=== PATIENT | female | born 1970 | race Caucasian/White ===

== ENCOUNTER 2019-01-19 17:15 | Observation (INO) | payer SELFPAY ==
[~2019-01-19] VITALS: Ht 152 cm; Wt 111.0 kg
--- NOTE | 2019-01-19 17:20 | NUR ---
Brought to room to be triaged, PCCT getting subjective c/o and vitals and reporting to RN.
--- NOTE | 2019-01-19 17:33 | NUR ---
RN to room to assess patient.
[2019-01-19] MEDS ORDERED: KETOROLAC 30 MG/ML VIAL IVP STA (18:16)
[2019-01-19] MEDS ORDERED: ONDANSETRON 4 MG/2 ML (SDV) Z0FRAN IVP STA ×2 (18:16→23:14)
[2019-01-19] MEDS ORDERED: NS IV 1000 ML 1,000 ML IV SCH ×3 (18:30→22:15)
--- NOTE | 2019-01-19 18:48 | NUR ---
Accucheck done 133.
[2019-01-19 18:53] LABS: HEMATOCRIT 46 % (35-52); HEMOGLOBIN 15.2 G/DL (11.5-16.0); LYMPHOCYTES % (AUTO) 7 % (12-44); MEAN CORPUSCULAR HEMOGLOBIN 31 PG (25-34); MEAN CORPUSCULAR HGB CONC 33 G/DL (32-36); MEAN CORPUSCULAR VOLUME 94 FL (80-99); MEAN PLATELET VOLUME 9.6 FL (7.4-10.4); NEUTROPHILS % (AUTO) 88 % (42-75); PLATELET COUNT 338 10^3/uL (130-400); RED CELL DISTRIBUTION WIDTH 13.1 % (10.0-14.5); WHITE BLOOD COUNT 13.8 10^3/uL (4.3-11.0)
[2019-01-19 18:54] LABS: BASOPHILS % (AUTO) 0 % (0-10); EOSINOPHILS % (AUTO) 0 % (0-10); LYMPHOCYTES # (AUTO) 0.9 X 10^3 (1.0-4.0); MONOCYTES # (AUTO) 0.6 X 10^3 (0.0-1.0); MONOCYTES % (AUTO) 4 % (0-12); NEUTROPHILS # (AUTO) 12.2 X 10^3 (1.8-7.8)
--- NOTE | 2019-01-19 18:55 | NUR ---
Report to Janet ZENG. Pt needs meds yet. Pt just returned from bathroom having attempted to void and have a diarrhea stool to collect and both became mixed and were discarded.
[2019-01-19] MEDS ORDERED: IOHEXOL 350 MG/ML 150 ML (OMNIPAQUE 350) VIAL IV ONE (19:00)
[2019-01-19] MEDS ORDERED: HOLD METFORMIN - RECEIVED CONTRAST 20 ML VIAL IV SCH (19:00)
[2019-01-19] MEDS ORDERED: NS 100 ML (IVPB) BAG IV ONE (19:00)
[2019-01-19] MEDS ORDERED: CATHETER FLUSH 10 ML SYR IV PRN (19:00)
[2019-01-19 19:19] LABS: ALANINE AMINOTRANSFERASE 52 U/L (0-55); ALBUMIN 4.6 GM/DL (3.2-4.5); ALKALINE PHOSPHATASE 108 U/L (40-136); BILIRUBIN,TOTAL 0.4 MG/DL (0.1-1.0); BUN/CREATININE RATIO 26; CALCIUM 9.8 MG/DL (8.5-10.1); CARBON DIOXIDE 24 MMOL/L (21-32); CHLORIDE 101 MMOL/L (98-107); CREATININE SERUM 0.86 MG/DL (0.60-1.30); GFR ESTIMATED > 60; GLUCOSE 139 MG/DL (70-105); LIPASE 26 U/L (8-78); POTASSIUM 4.1 MMOL/L (3.6-5.0); SODIUM 141 MMOL/L (135-145); TOTAL PROTEIN 7.9 GM/DL (6.4-8.2)
[2019-01-19 19:45] LABS: BAND NEUTROPHILS 3 %; LYMPHOCYTES % (MANUAL) 3 %; MONOCYTES % (MANUAL) 3 %; NEUTROPHILS % (MANUAL) 89 %; REACTIVE LYMPHOCYTES 2 %
[2019-01-19 19:46] LABS: MICROCYTOSIS SLIGHT; SMEAR SCAN COMMENT GIANT PLATELETS 1+; TOXIC GRANULATION/VACUOLAZATIO 1+
--- NOTE | 2019-01-19 19:59 | Diagnostic Imaging Report ---
PROCEDURE: CT abdomen and pelvis with contrast. TECHNIQUE: Multiple contiguous axial images were obtained through the abdomen and pelvis after administration of intravenous contrast. Auto Exposure Controls were utilized during the CT exam to meet ALARA standards for radiation dose reduction. INDICATION: Left lower quadrant abdominal pain. History of diverticulitis. COMPARISON: None. FINDINGS: The heart is unremarkable. The included lung bases are clear. There is hepatic steatosis. No focal hepatic lesions. The gallbladder is surgically absent. A nodule is seen in the right adrenal gland, measuring 1.6 cm. The left adrenal gland is unremarkable. The spleen, pancreas, and kidneys have a normal appearance. There is no pathologically enlarged mesenteric or retroperitoneal adenopathy. Fluid-filled mildly dilated loops of small bowel are seen throughout the abdomen. The appendix is normal. Fluid-filled loops of bowel are also seen in the right colon. Scattered diverticuli are seen in the descending and sigmoid colon without evidence of acute diverticulitis. There is no free fluid or free air. The osseous structures are age-appropriate. Ureters and bladder are grossly normal. There is no free air, loculated collection, or adenopathy in the pelvis. IMPRESSION: 1. Fluid-filled mildly dilated loops of small bowel, which may represent enteritis. However, early small bowel obstruction may have this appearance. Recommend follow-up. 2. Scattered diverticuli without evidence of acute diverticulitis. 3. Hepatic steatosis. No focal hepatic lesions. 4. Nodule in the right adrenal gland measuring 1.6 cm. Recommend attention on followup. Adrenal protocol CT or MRI may also be performed to further evaluate. Dictated by: Dictated on workstation # [id number]
[2019-01-19] MEDS ORDERED: HYOS-19 (20:18)
[2019-01-19] MEDS ORDERED: LISI40TA (20:18)
[2019-01-19] MEDS ORDERED: METO50TA15 PO (20:18)
--- NOTE | 2019-01-19 20:43 | ED Abdominal Pain ---
General Chief Complaint: Abdominal/GI Problems Stated Complaint: VOMITING,ABD PAIN Nursing Triage Note: Patient arrival to ED with c/o N/V/D x 3 days with worsening pain in LLQ over to midline. Pt states one week ago with stomach cramps and lesser N/V/D sx. Pt has been on Flagyl and Cipro since last Sunday. Reports of very foul smell stool. Sepsis Screen: Possible Severe Sepsis Risk Source of Information: Patient, Spouse History of Present Illness Date Seen by Provider: Jan 19, 2019 Time Seen by Provider: 19:33 Initial Comments 48-year-old female presenting with complaints of diffuse abdominal pain with nausea, vomiting, diarrhea 4 days. She states she was in the clinic this last week and seen by JOHN Sinha. She was on Flagyl and Cipro for the abdominal pain and presumed diverticulitis. She does have history diverticulitis and that was part of why she was on the antibiotics. However then she developed diarrhea and so she had stopped the antibiotics 4 days ago. The diarrhea and nausea and vomiting had continued. She presents tonight because she continued to have symptoms. She was having low-grade fevers at home as well. She reports that her diarrhea and vomited both had a very foul smell to them and have been green in color. Her abdominal pain has been worsening as well. She feels that it is worse in the left lower quadrant. She has had a lot of irritation to her rectum and had bleeding with wiping. Allergies and Home Medications Allergies Coded Allergies: prochlorperazine (Verified Allergy, Severe, Anaphylaxis, 01/19/19) Patient Home Medication List Home Medication List Reviewed: Yes Review of Systems Review of Systems Constitutional: chills, fever (low-grade), malaise EENTM: No Blurred Vision, No Nose Congestion Respiratory: Denies Cough Cardiovascular: Denies Chest Pain; Lightheadedness Gastrointestinal: See HPI, Abdomen Distended (bloated sensation), Abdominal Pain (cramping and pain), Diarrhea, Nausea, Rectal Bleeding (from the increased amount of diarrhea she has had bleeding around her rectum), Vomiting Genitourinary: Denies Burning Musculoskeletal: muscle pain (overall body aches) Skin: no symptoms reported Psychiatric/Neurological: Headache, Weakness (generalized) Past Eyqwptj-Esjlsw-Bhwjxf Hx Past Med/Social Hx: Reviewed Nursing Past Med/Soc Hx Patient Social History Alcohol Use: Denies Use Recreational Drug Use: No Smoking Status: Never a Smoker 2nd Hand Smoke Exposure: No Recent Foreign Travel: No Contact w/Someone Who Travel: No Recent Infectious Disease Expo: No Recent Hopitalizations: No Physical Abuse: No Sexual Abuse: No Mistreated: No Fear: No Seasonal Allergies Seasonal Allergies: No Past Medical History Surgeries: Yes (L lateral knee release) Gallbladder, Hysterectomy, Orthopedic Respiratory: No Cardiac: Yes Hypertension Neurological: No [employer]ENT History: Hysterectomy Genitourinary: No Gastrointestinal: Yes (Hx Diverticulitis) Musculoskeletal: No Endocrine: Yes (Newly diagnosed DM Type II) Diabetes, Non-Insulin dep Cancer: No Psychosocial: No Integumentary: No Blood Disorders: No Physical Exam Vital Signs Vital Signs - First Documented 01/19/19 17:20 Temp 37.3 Pulse 121 Resp 22 B/P (MAP) 152/78 (102) Pulse Ox 97 O2 Delivery Room Air Capillary Refill : Less Than 3 Seconds Height/Weight/BMI Height: '" Weight: lbs. oz. kg; 46.00 BMI Method: General Appearance: WD/WN, mild distress HEENT: PERRL/EOMI; No photophobia, No pharyngeal erythema; other (dry mucous membranes) Neck: non-tender, full range of motion, supple, normal inspection Respiratory: chest non-tender, lungs clear, normal breath sounds Cardiovascular: normal peripheral pulses, no edema, tachycardia Gastrointestinal: soft, no pulsatile mass, abnormal bowel sounds (hyperactive); No guarding, No rebound; tenderness (diffusely tender); No mass Rectal: deferred Extremities: normal range of motion, non-tender, normal inspection, normal capillary refill Back: no CVA tenderness Neurologic/Psychiatric: alert, normal mood/affect, oriented x 3 Skin: normal color, warm/dry Focused Exam Lactate Level 01/19/19 18:30: Lactic Acid Level 2.29*H 01/19/19 20:30: Lactic Acid Level 1.41 Lactic Acid Level Laboratory Tests Test 01/19/19 18:30 01/19/19 20:30 Lactic Acid Level 2.29 MMOL/L (0.50-2.00) *H 1.41 MMOL/L (0.50-2.00) Progress/Results/Core Measures Results/Orders Lab Results Laboratory Tests Test 01/19/19 18:30 01/19/19 18:43 01/19/19 20:27 01/19/19 20:30 Range/Units White Blood Count 13.8 H 4.3-11.0 10^3/uL Red Blood Count 4.91 4.35-5.85 10^6/uL Hemoglobin 15.2 11.5-16.0 G/DL Hematocrit 46 35-52 % Mean Corpuscular Volume 94 80-99 FL Mean Corpuscular Hemoglobin 31 25-34 PG Mean Corpuscular Hemoglobin Concent 33 32-36 G/DL Red Cell Distribution Width 13.1 10.0-14.5 % Platelet Count 338 130-400 10^3/uL Mean Platelet Volume 9.6 7.4-10.4 FL Neutrophils (%) (Auto) 88 H 42-75 % Lymphocytes (%) (Auto) 7 L 12-44 % Monocytes (%) (Auto) 4 0-12 % Eosinophils (%) (Auto) 0 0-10 % Basophils (%) (Auto) 0 0-10 % Neutrophils # (Auto) 12.2 H 1.8-7.8 X 10^3 Lymphocytes # (Auto) 0.9 L 1.0-4.0 X 10^3 Monocytes # (Auto) 0.6 0.0-1.0 X 10^3 Eosinophils # (Auto) 0.0 0.0-0.3 10^3/uL Basophils # (Auto) 0.0 0.0-0.1 10^3/uL Neutrophils % (Manual) 89 % Lymphocytes % (Manual) 3 % Monocytes % (Manual) 3 % Band Neutrophils 3 % Reactive Lymphocytes 2 % Toxic Granulation 1+ Microcytosis SLIGHT Sodium Level 141 135-145 MMOL/L Potassium Level 4.1 3.6-5.0 MMOL/L Chloride Level 101 98-107 MMOL/L Carbon Dioxide Level 24 21-32 MMOL/L Anion Gap 16 H 5-14 MMOL/L Blood Urea Nitrogen 22 H 7-18 MG/DL Creatinine 0.86 0.60-1.30 MG/DL Estimat Glomerular Filtration Rate > 60 BUN/Creatinine Ratio 26 Glucose Level 139 H 70-105 MG/DL Lactic Acid Level 2.29 *H 1.41 0.50-2.00 MMOL/L Calcium Level 9.8 8.5-10.1 MG/DL Corrected Calcium 8.5-10.1 MG/DL Total Bilirubin 0.4 0.1-1.0 MG/DL Aspartate Amino Transf (AST/SGOT) 33 5-34 U/L Alanine Aminotransferase (ALT/SGPT) 52 0-55 U/L Alkaline Phosphatase 108 40-136 U/L Total Protein 7.9 6.4-8.2 GM/DL Albumin 4.6 H 3.2-4.5 GM/DL Lipase 26 8-78 U/L Serum Test, Qualitative NEGATIVE NEGATIVE Smear Scan GIANT PLATELETS 1+ Glucometer 133 H 70-110 MG/DL Urine Color YELLOW Urine Clarity CLEAR Urine pH 6.5 5-9 Urine Specific [place] <=1.005 1.016-1.022 Urine Protein TRACE NEGATIVE Urine Glucose (UA) NEGATIVE NEGATIVE Urine Ketones NEGATIVE NEGATIVE Urine Nitrite NEGATIVE NEGATIVE Urine Bilirubin NEGATIVE NEGATIVE Urine Urobilinogen 0.2 < = 1.0 MG/DL Urine Leukocyte Esterase NEGATIVE NEGATIVE Urine RBC (Auto) TRACE-L NEGATIVE Urine RBC 2-5 H /HPF Urine WBC NONE /HPF Urine Squamous Epithelial Cells 0-2 /HPF Urine Crystals NONE /LPF Urine Bacteria TRACE /HPF Urine Casts NONE /LPF Urine Mucus SMALL H /LPF Urine Culture Indicated NO My Orders Orders - ZIA LYONS MD Comprehensive Metabolic Panel (01/19/19 18:16) Lipase (01/19/19 18:16) Ua Culture If Indicated (01/19/19 18:16) Hcg,Qualitative Serum (01/19/19 18:16) Ed Iv/Invasive Line Start (01/19/19 18:16) Cbc With Automated Diff (01/19/19 18:16) Ct Abdomen/Pelvis W (01/19/19 18:16) Ns Iv 1000 Ml (Sodium Chloride 0.9%) (01/19/19 18:30) Ketorolac Injection (Toradol Injection) (01/19/19 18:16) Ondansetron Injection (Zofran Injectio (01/19/19 18:16) Blood Culture (01/19/19 18:16) Lactic Acid Analyzer (01/19/19 18:16) Accucheck Stat ONCE (01/19/19 18:46) Iohexol Injection (Omnipaque 350 Mg/Ml 1 (01/19/19 19:00) Received Contrast (Hold Metformin- Contr (01/19/19 19:00) Sodium Chloride Flush (Catheter Flush Sy (01/19/19 19:00) Ns (Ivpb) (Sodium Chloride 0.9% Ivpb Bag (01/19/19 19:00) Manual Differential (01/19/19 18:30) C Difficile Ag + Toxin A/B. (01/19/19 18:56) Isolation Central Supply Req (01/19/19 18:56) Ns Iv 1000 Ml (Sodium Chloride 0.9%) (01/19/19 20:45) Straight Cath For Spec.-Adult (01/19/19 20:43) Medications Given in ED Current Medications Medications Dose Ordered Sig/Makayla Route Start Time Stop Time Status Last Admin Dose Admin Iohexol 115 ml ONCE ONCE IV 01/19/19 19:00 01/19/19 19:01 DC 01/19/19 19:33 115 ML Sodium Chloride 10 ml NEEDED PRN IV 01/19/19 19:00 01/19/19 19:33 10 ML Sodium Chloride 100 ml ONCE ONCE IV 01/19/19 19:00 01/19/19 19:01 DC 01/19/19 19:33 100 ML Vital Signs/I&O 01/19/19 17:20 Temp 37.3 Pulse 121 Resp 22 B/P (MAP) 152/78 (102) Pulse Ox 97 O2 Delivery Room Air Blood Pressure Mean: 102 POS FSBG Bedside Testing Finger Stick Blood Glucose: 133 Blood Glucose Action Taken: reported to Dr Junior Progress Note #1: Progress Note Check basic labs as well as blood cultures and lactic acid since she is tachycardic and complaining of fevers. Give IV fluids for hydration since she was tachycardic. Zofran for nausea and Toradol for pain. Obtain a CT scan of her abdomen and pelvis to evaluate her diffuse abdominal pain especially with her having a history of diverticulitis. Ordered a stool for C. difficile toxin Progress Note #2: Progress Note Patient reports that her abdominal cramping and pain was improved after treatment. However it is still severe with palpation and movement. Her nausea is improved after the Zofran. She was feeling a little bit better after the IV fluids. Her labs did show an elevated white blood cell count with a left shift. She did have mild elevation of her lactic acid which could go along with dehydration. She had a blood sugar of 133. Her other electrolytes and liver enzymes were normal. She had a CT scan that showed signs of enteritis and diverticulosis but no definite diverticulitis. The radiologist felt that her appendix looked normal on the CT. A catheter urine was obtained and did not go straight any signs of infection. She had continued diarrhea here in the ED and stool was sent to [place] for testing. Based on her continuing to have severe pain and cramping as well as the elevated white count, lactic acid, diarrhea Will discuss with Dr. Coronado for the [facility] service about admission for hydration and antibiotics for presumed infectious source of the diarrhea. Stool studies will be sent Repeat lactic acid had decreased from 2.29 down to 1.4 as she was given IV fluids for hydration. A dose of Rocephin 1 g IV had also been administered and blood cultures are pending. Diagnostic Imaging Diagonstic Imaging: CT Plain Films/CT/US/NM/MRI: abdomen, pelvis Comments NAME: ADAMARIS [facility] REC#: [id number] PT STATUS: REG ER : 1970 PHYSICIAN: ZIA LYONS MD ADMIT DATE: 01/19/19/ER FS Signed POSDate of Exam:01/19/19 CT ABDOMEN/PELVIS W PROCEDURE: CT abdomen and pelvis with contrast. TECHNIQUE: Multiple contiguous axial images were obtained through the abdomen and pelvis after administration of intravenous contrast. Auto Exposure Controls were utilized during the CT exam to meet ALARA standards for radiation dose reduction. INDICATION: Left lower quadrant abdominal pain. History of diverticulitis. COMPARISON: None. FINDINGS: The heart is unremarkable. The included lung bases are clear. There is hepatic steatosis. No focal hepatic lesions. The gallbladder is surgically absent. A nodule is seen in the right adrenal gland, measuring 1.6 cm. The left adrenal gland is unremarkable. The spleen, pancreas, and kidneys have a normal appearance. There is no pathologically enlarged mesenteric or retroperitoneal adenopathy. Fluid-filled mildly dilated loops of small bowel are seen throughout the abdomen. The appendix is normal. Fluid-filled loops of bowel are also seen in the right colon. Scattered diverticuli are seen in the descending and sigmoid colon without evidence of acute diverticulitis. There is no free fluid or free air. The osseous structures are age-appropriate. Ureters and bladder are grossly normal. There is no free air, loculated collection, or adenopathy in the pelvis. IMPRESSION: 1. Fluid-filled mildly dilated loops of small bowel, which may represent enteritis. However, early small bowel obstruction may have this appearance. Recommend follow-up. 2. Scattered diverticuli without evidence of acute diverticulitis. 3. Hepatic steatosis. No focal hepatic lesions. 4. Nodule in the right adrenal gland measuring 1.6 cm. Recommend attention on followup. Adrenal protocol CT or MRI may also be performed to further evaluate. Dictated by: Dictated on workstation # [id number] Dict: 01/19/191949 Trans: 01/19/191958 [facility] [id number] Interpreted by: EVERETTE BENAVIDEZ DO Electronically signed by: EVERETTE BENAVIDEZ DO 01/19/191958 Departure Communication (Admissions) Time/Spoke to Admitting Phy: 20:[address] Coronado for the [facility] service since patient follows with JOHN Sinha. Will admit the patient for hydration and obtain stool cultures and check for her C. difficile. Will presumptively treat with Flagyl orally as well as give a dose of Rocephin IV here. Continue with fluids and serial abdominal exam for her pain. The initial CT scan did not show diverticulitis or appendicitis but patient was still having pain so we will admit for monitoring and see how she responds. Impression Primary Impression: Diffuse abdominal pain Additional Impressions: Diarrhea Qualified Codes: R19.7 - Diarrhea, unspecified Enteritis Dehydration Disposition: ADMITTED INPATIENT Condition: Stable Admissions Decision to Admit Reason: Admit from ER (General) Decision to Admit/Date: Jan 19, 2019 Time/Decision to Admit Time: 20:56 Departure-Patient Inst. Referrals: [facility] (PCP) Primary Care Physician MANAN SINHA (Family) Primary Care Physician ZIA LYONS MD Jan 19, 2019 20:43 POS
[2019-01-19 20:46] LABS: CLARITY,URINE CLEAR; COLOR,URINE YELLOW; PH,URINE 6.5 (5-9); PROTEIN,URINE TRACE (NEGATIVE)
[2019-01-19 20:47] LABS: BACTERIA,URINE TRACE /HPF; BILIRUBIN,URINE NEGATIVE (NEGATIVE); GLUCOSE, URINE (UA) NEGATIVE (NEGATIVE); KETONES,URINE NEGATIVE (NEGATIVE); LEUKOCYTE ESTERASE ,URINE NEGATIVE (NEGATIVE); NITRITE,URINE NEGATIVE (NEGATIVE); SQUAMOUS EPITHELIAL CELL,UR 0-2 /HPF
[2019-01-19] MEDS ORDERED: cefTRIAXone FOR IV USE 1,000 MG in WATER (STERILE) FOR INJECTION 10 ML IV STA (21:23)
[2019-01-19] MEDS ORDERED: NS IV 1000 ML 1,000 ML IV STA (21:23)
[2019-01-20 00:35] VITALS: BP 160/83
[2019-01-20] MEDS ORDERED: morphine INJ 4 MG/ML 1 ML (VIAL/SYRINGE) IV PRN (01:00)
[2019-01-20] MEDS: NS IV 1000 ML 1,000 ML IV SCH ×4 (01:00→21:47)
[2019-01-20] MEDS ORDERED: ONDANSETRON 4 MG/2 ML (SDV) Z0FRAN IV PRN (01:00)
[2019-01-20] MEDS ORDERED: KETOROLAC 30 MG/ML VIAL IV PRN (01:00)
[2019-01-20 04:49] VITALS: BP 126/74
[2019-01-20] MEDS ORDERED: metroNIDAZOLE 500 MG (FLAGYL) TAB PO SCH (06:00)
[2019-01-20 06:22] LABS: BASOPHILS % (AUTO) 0 % (0-10); EOSINOPHILS % (AUTO) 0 % (0-10); HEMATOCRIT 37 % (35-52); LYMPHOCYTES # (AUTO) 1.7 X 10^3 (1.0-4.0); LYMPHOCYTES % (AUTO) 26 % (12-44); MEAN CORPUSCULAR HEMOGLOBIN 31 PG (25-34); MEAN CORPUSCULAR HGB CONC 33 G/DL (32-36); MEAN CORPUSCULAR VOLUME 96 FL (80-99); MEAN PLATELET VOLUME 9.7 FL (7.4-10.4); MONOCYTES # (AUTO) 0.6 X 10^3 (0.0-1.0); MONOCYTES % (AUTO) 9 % (0-12); NEUTROPHILS # (AUTO) 4.3 X 10^3 (1.8-7.8); NEUTROPHILS % (AUTO) 66 % (42-75); PLATELET COUNT 226 10^3/uL (130-400); WHITE BLOOD COUNT 6.6 10^3/uL (4.3-11.0)
[2019-01-20 06:43] LABS: ALANINE AMINOTRANSFERASE 42 U/L (0-55); ALBUMIN 3.6 GM/DL (3.2-4.5); ALKALINE PHOSPHATASE 74 U/L (40-136); BILIRUBIN,TOTAL 0.4 MG/DL (0.1-1.0); BUN/CREATININE RATIO 25; CALCIUM 7.9 MG/DL (8.5-10.1); CARBON DIOXIDE 22 MMOL/L (21-32); CHLORIDE 109 MMOL/L (98-107); CREATININE SERUM 0.77 MG/DL (0.60-1.30); GFR ESTIMATED > 60; GLUCOSE 98 MG/DL (70-105); POTASSIUM 3.3 MMOL/L (3.6-5.0); SODIUM 140 MMOL/L (135-145); TOTAL PROTEIN 5.9 GM/DL (6.4-8.2)
[2019-01-20 08:50] VITALS: BP 134/67
[2019-01-20] MEDS: CHOLESTYRAMINE 4 GM (QUESTRAN LITE, PREVALITE) PKT PO SCH ×2 (09:03→21:40)
[2019-01-20] MEDS ORDERED: VANCOMYCIN ORAL SUSPENSION 60 ML BOTTLE PO SCH (09:15)
[2019-01-20] MEDS: VANCOMYCIN ORAL 250 MG/5 ML 120 ML PO SCH ×6 (11:16→22:41)
[2019-01-20 11:41] VITALS: BP 138/81
--- NOTE | 2019-01-20 13:16 | NUR ---
"RD ASSESSMENT PMHx: T2DM; diverticulosis; HTN PT INTERACTION: Pt was awake and pleasant during nutrition assessment. Pt states current appetite is poor and has been this way for the last week. Pt states trying to follow a diabetic diet at home as she was recently diagnosed with type 2 diabetes mellitus. Pt states some difficulty chewing/swallowing food at this time. Pt states episodes of nausea/vomiting over the last week. Note pt currently on zofran, per chart review. Pt states having episodes of diarrhea during that timeframe as well. Note last BM was 01/20 and pt not currently on bowel regimen at this time, per chart review. Pt states no recent wt changes. Note unable to determine recent wt hx, per chart review. ABNORMAL NUTRITION-RELATED LAB VALUES: K 3.3 (L); Ca 7.9 (L); Pro 5.9 (L); Cl 109 (H0; BUN 19 (H) Est. kcal needs: 2266-6136 kcal (15-18 kcal/kg) Est. Pro needs: 89-111 g Pro (0.8-1.0 g Pro/kg) PES STATEMENT: Inadequate oral intake (NI-2.1) related to loss of appetite | nausea | vomiting as evidenced by pt interview INTERVENTION: Continue with current diet order of Clear Liquid diet. Advance diet as medically able. Encouraged pt to eat when able. MONITOR/EVALUATE: PO Intake; Plan of Care; Hydration Status; Weight Status; Lab Values Jonah Allan, MS, RD, LD"
[2019-01-20] MEDS ORDERED: METR500T PO (13:24)
[2019-01-20] MEDS ORDERED: VENL75CA93 PO (13:24)
[2019-01-20] MEDS ORDERED: OMEP40CA36 PO (13:24)
[2019-01-20] MEDS ORDERED: CIPR-225 PO (13:24)
[2019-01-20] MEDS ORDERED: IBUP-2055 PO (13:24)
--- NOTE | 2019-01-20 13:24 | NUR ---
SPOKE WITH PT WELL CALLING [facility] IN [facility] TO COMPLETE THE MED REC. PT WAS ABLE TO TELL ME ALL HER MEDS AND HOW/ WHEN SHE TOOK EACH ONE. THE FOLLOWING ARE FILL DATES FROM [facility]: 12-04-2018 METOPROLOL #60/30DS 12-23-2018 OMEPRAZOLE #30/30DS 12-23-2018 VENLAFAXINE #30/30DS SHE WAS ALSO PRESCRIBED 2 ANTIBIOTICS BUT SAYS SHE QUIT TAKING THEM THE DAY BEFORE SHE WAS ADMITTED, THEY WERE LEFT ON THE MED REC. OTC MEDS: IBUPROFEN
[2019-01-20 15:22] VITALS: BP 165/78
--- NOTE | 2019-01-20 16:23 | History & Physical ---
HPI History of Present Illness: 48 yo female having diarrhea and abdominal pain for about a week. Saw her primary and was started on cipro and flagyl for presumed diverticulitis which she has history of. She got worse however so she stopped abx after 3 days and continued to get worse. Has also had vomiting. Source: patient Date seen by provider: Jan 20, 2019 Time Seen by Provider: 12:40 Attending Physician Louis Mckinley MD [facility], [facility] [place],[facility] Consult Date of Admission Jan 19, 2019 at 20:56 Home Medications Home Medications Reviewed patient Home Medication Reconciliation performed by pharmacy medication reconciliations sonogram technician and/or nursing. Patients Allergies have been reviewed. Allergies Coded Allergies: prochlorperazine (Verified Allergy, Severe, Anaphylaxis, 01/19/19) AHA-Ebpjxf-Blrbwj Hx Patient Social History Alcohol Use: Denies Use Recreational Drug Use: No Smoking Status: Never a Smoker 2nd Hand Smoke Exposure: No Recent Foreign Travel: No Contact w/other who traveled: No Recent Hopitalizations: No Recent Infectious Disease Expo: No Past Medical History PMHx: DMII RA Fibromyalgia SurgHx: Hysterectomy Cholecystectomy Left knee surgery Review of Systems ([facility]) Constitutional: fever EENTM: throat pain Respiratory: no symptoms reported Cardiovascular: chest pain (with vomiting) Gastrointestinal: abdominal pain, diarrhea, nausea, vomiting Genitourinary: no symptoms reported Musculoskeletal: no symptoms reported Skin: no symptoms reported Psychiatric/Neurological: No Symptoms Reported Reviewed Test Results Reviewed Test Results Lab Laboratory Tests Test 01/19/19 18:30 01/19/19 18:43 01/19/19 20:27 01/19/19 20:30 Range/Units White Blood Count 13.8 H 4.3-11.0 10^3/uL Red Blood Count 4.91 4.35-5.85 10^6/uL Hemoglobin 15.2 11.5-16.0 G/DL Hematocrit 46 35-52 % Mean Corpuscular Volume 94 80-99 FL Mean Corpuscular Hemoglobin 31 25-34 PG Mean Corpuscular Hemoglobin Concent 33 32-36 G/DL Red Cell Distribution Width 13.1 10.0-14.5 % Platelet Count 338 130-400 10^3/uL Mean Platelet Volume 9.6 7.4-10.4 FL Neutrophils (%) (Auto) 88 H 42-75 % Lymphocytes (%) (Auto) 7 L 12-44 % Monocytes (%) (Auto) 4 0-12 % Eosinophils (%) (Auto) 0 0-10 % Basophils (%) (Auto) 0 0-10 % Neutrophils # (Auto) 12.2 H 1.8-7.8 X 10^3 Lymphocytes # (Auto) 0.9 L 1.0-4.0 X 10^3 Monocytes # (Auto) 0.6 0.0-1.0 X 10^3 Eosinophils # (Auto) 0.0 0.0-0.3 10^3/uL Basophils # (Auto) 0.0 0.0-0.1 10^3/uL Neutrophils % (Manual) 89 % Lymphocytes % (Manual) 3 % Monocytes % (Manual) 3 % Band Neutrophils 3 % Reactive Lymphocytes 2 % Toxic Granulation 1+ Microcytosis SLIGHT Sodium Level 141 135-145 MMOL/L Potassium Level 4.1 3.6-5.0 MMOL/L Chloride Level 101 98-107 MMOL/L Carbon Dioxide Level 24 21-32 MMOL/L Anion Gap 16 H 5-14 MMOL/L Blood Urea Nitrogen 22 H 7-18 MG/DL Creatinine 0.86 0.60-1.30 MG/DL Estimat Glomerular Filtration Rate > 60 BUN/Creatinine Ratio 26 Glucose Level 139 H 70-105 MG/DL Lactic Acid Level 2.29 *H 1.41 0.50-2.00 MMOL/L Calcium Level 9.8 8.5-10.1 MG/DL Corrected Calcium 8.5-10.1 MG/DL Total Bilirubin 0.4 0.1-1.0 MG/DL Aspartate Amino Transf (AST/SGOT) 33 5-34 U/L Alanine Aminotransferase (ALT/SGPT) 52 0-55 U/L Alkaline Phosphatase 108 40-136 U/L Total Protein 7.9 6.4-8.2 GM/DL Albumin 4.6 H 3.2-4.5 GM/DL Lipase 26 8-78 U/L Serum Test, Qualitative NEGATIVE NEGATIVE Smear Scan GIANT PLATELETS 1+ Glucometer 133 H 70-110 MG/DL Urine Color YELLOW Urine Clarity CLEAR Urine pH 6.5 5-9 Urine Specific [place] <=1.005 1.016-1.022 Urine Protein TRACE NEGATIVE Urine Glucose (UA) NEGATIVE NEGATIVE Urine Ketones NEGATIVE NEGATIVE Urine Nitrite NEGATIVE NEGATIVE Urine Bilirubin NEGATIVE NEGATIVE Urine Urobilinogen 0.2 < = 1.0 MG/DL Urine Leukocyte Esterase NEGATIVE NEGATIVE Urine RBC (Auto) TRACE-L NEGATIVE Urine RBC 2-5 H /HPF Urine WBC NONE /HPF Urine Squamous Epithelial Cells 0-2 /HPF Urine Crystals NONE /LPF Urine Bacteria TRACE /HPF Urine Casts NONE /LPF Urine Mucus SMALL H /LPF Urine Culture Indicated NO Test 01/20/19 05:48 Range/Units White Blood Count 6.6 4.3-11.0 10^3/uL Red Blood Count 3.81 L 4.35-5.85 10^6/uL Hemoglobin 12.0 # 11.5-16.0 G/DL Hematocrit 37 35-52 % Mean Corpuscular Volume 96 80-99 FL Mean Corpuscular Hemoglobin 31 25-34 PG Mean Corpuscular Hemoglobin Concent 33 32-36 G/DL Red Cell Distribution Width 14.0 10.0-14.5 % Platelet Count 226 130-400 10^3/uL Mean Platelet Volume 9.7 7.4-10.4 FL Neutrophils (%) (Auto) 66 42-75 % Lymphocytes (%) (Auto) 26 12-44 % Monocytes (%) (Auto) 9 0-12 % Eosinophils (%) (Auto) 0 0-10 % Basophils (%) (Auto) 0 0-10 % Neutrophils # (Auto) 4.3 1.8-7.8 X 10^3 Lymphocytes # (Auto) 1.7 1.0-4.0 X 10^3 Monocytes # (Auto) 0.6 0.0-1.0 X 10^3 Eosinophils # (Auto) 0.0 0.0-0.3 10^3/uL Basophils # (Auto) 0.0 0.0-0.1 10^3/uL Sodium Level 140 135-145 MMOL/L Potassium Level 3.3 L 3.6-5.0 MMOL/L Chloride Level 109 H 98-107 MMOL/L Carbon Dioxide Level 22 21-32 MMOL/L Anion Gap 9 5-14 MMOL/L Blood Urea Nitrogen 19 H 7-18 MG/DL Creatinine 0.77 0.60-1.30 MG/DL Estimat Glomerular Filtration Rate > 60 BUN/Creatinine Ratio 25 Glucose Level 98 70-105 MG/DL Calcium Level 7.9 L 8.5-10.1 MG/DL Corrected Calcium 8.2 L 8.5-10.1 MG/DL Total Bilirubin 0.4 0.1-1.0 MG/DL Aspartate Amino Transf (AST/SGOT) 25 5-34 U/L Alanine Aminotransferase (ALT/SGPT) 42 0-55 U/L Alkaline Phosphatase 74 40-136 U/L Total Protein 5.9 L 6.4-8.2 GM/DL Albumin 3.6 3.2-4.5 GM/DL Radiology CT abd/pelvis 01/19- hepatic steatosis, right adrenal 1.6 cm nodule, enteritis Physical Exam-([facility]) Physical Exam Vital Signs VS - Last 72 Hours, by Label POS 01/19/19 01/19/19 01/20/19 01/20/19 17:20 23:52 00:35 04:49 Temp 37.3 37.2 37.6 Pulse 121 101 101 108 Resp 22 18 20 20 B/P (MAP) 152/78 (102) 168/87 160/83 (108) 126/74 (91) Pulse Ox 97 98 98 97 O2 Delivery Room Air Room Air Room Air Room Air 01/20/19 01/20/19 01/20/19 01/20/19 08:00 08:50 11:41 13:03 Temp 37.0 36.6 Pulse 100 95 94 Resp 20 20 B/P (MAP) 134/67 (89) 138/81 (100) Pulse Ox 94 97 O2 Delivery Room Air Room Air Room Air 01/20/19 15:22 Temp 36.7 Pulse 91 Resp 18 B/P (MAP) 165/78 (107) Pulse Ox 98 O2 Delivery Room Air Capillary Refill : Less Than 3 Seconds General Appearance: WD/WN, no apparent distress Respiratory: lungs clear, normal breath sounds Cardiovascular: regular rate, rhythm, no murmur Gastrointestinal: normal bowel sounds, soft; No distended; tenderness (diffuse mild) Extremities: no pedal edema Neurologic/Psychiatric: alert, normal mood/affect Skin: normal color, warm/dry Assessment/Plan Assessment/Plan Admission Status: Observation (1) C. difficile colitis Status: Acute Assessment & Plan: Started oral vancomycin. IV rehydration. Initial leukocytosis and lactic acidosis resolved. (2) Adrenal nodule Status: Acute Assessment & Plan: Recommend hormone testing when illness resolved. (3) Diabetes Status: Chronic Assessment & Plan: Sliding scale insulin Qualifiers: (4) Hypokalemia Status: Acute Assessment & Plan: Replace and recheck (5) Hypocalcemia Status: Acute (6) Hematuria Status: Acute Assessment & Plan: Microscopic, CT okay for kidneys, is a non-smoker. Consider further work-up outpatient. (7) DVT prophylaxis Status: Acute Assessment & Plan: Enoxaparin Clinical Quality Measures DVT/VTE Risk/Contraindication: Risk Factor Score Per Nursin RFS Level Per Nursing on Admit: 4+=Very High LOUIS MCKINLEY MD Jan 20, 2019 16:23 POS
[2019-01-20] MEDS: ENOXAPARIN 40 MG/0.4 ML (LOVENOX) SYR SQ SCH (16:59)
[2019-01-20 19:18] VITALS: BP 149/85
[2019-01-20] MEDS: inSUlin ASPART (NovoLOG) 1 UNIT/0.01 ML (CHARGE PER UNIT) SC SCH (21:06)
[2019-01-20] MEDS: meTOprolol TARTRATE 50 MG (LOPRESSOR) TAB PO SCH (21:40)
[2019-01-21] VITALS (8 sets, daily range): BP systolic 148–179; BP diastolic 76–101
[2019-01-21] MEDS: inSUlin ASPART (NovoLOG) 1 UNIT/0.01 ML (CHARGE PER UNIT) SC SCH ×4 (04:58→20:28)
[2019-01-21] MEDS: VANCOMYCIN ORAL 250 MG/5 ML 120 ML PO SCH ×6 (05:52→17:50)
[2019-01-21] MEDS: NS IV 1000 ML 1,000 ML IV SCH (05:52)
[2019-01-21] MEDS: ENOXAPARIN 40 MG/0.4 ML (LOVENOX) SYR SQ SCH ×2 (05:52→17:17)
[2019-01-21] MEDS: VENlafaxine XR 75 MG (EFFEXOR XR) CAP PO SCH (05:53)
[2019-01-21 06:30] LABS: MEAN PLATELET VOLUME 9.9 FL (7.4-10.4); RED CELL DISTRIBUTION WIDTH 13.8 % (10.0-14.5); WHITE BLOOD COUNT 5.5 10^3/uL (4.3-11.0)
[2019-01-21 06:48] LABS: BUN/CREATININE RATIO 11; CALCIUM 8.1 MG/DL (8.5-10.1); CARBON DIOXIDE 22 MMOL/L (21-32); CHLORIDE 108 MMOL/L (98-107); GFR ESTIMATED > 60; GLUCOSE 107 MG/DL (70-105); POTASSIUM 3.2 MMOL/L (3.6-5.0); SODIUM 140 MMOL/L (135-145)
[2019-01-21] MEDS ORDERED: NS W/KCL 20 MEQ/L 1,000 ML IV SCH (08:30)
[2019-01-21] MEDS: PANTOPRAZOLE 40 MG (PROTONIX) TAB PO SCH (08:51)
[2019-01-21] MEDS: meTOprolol TARTRATE 50 MG (LOPRESSOR) TAB PO SCH ×2 (08:51→20:28)
[2019-01-21] MEDS: CHOLESTYRAMINE 4 GM (QUESTRAN LITE, PREVALITE) PKT PO SCH ×2 (08:51→22:21)
[2019-01-21] MEDS: POTASSIUM CL 10MEQ/50ML IVPB 50 ML IV SCH ×3 (08:52→15:46)
--- NOTE | 2019-01-21 11:53 | NUR ---
DISCHARGE PLANNING: This RN spoke with patient regarding possible discharge soon. She reports concern for her 8 and 9 y/o grand children. She is afraid that she is contagious with her CDIFF infection and does not want her grandchildren to get it. Relayed concern to her doctor.
--- NOTE | 2019-01-21 14:59 | Progress Note ---
Subjective Subjective/Events-last exam Seen at 1245. Afebrile, has had 7 BM last 24 hours, continues to have some abdominal pain. Focused Exam Lactate Level 01/19/19 18:30: Lactic Acid Level 2.29*H 01/19/19 20:30: Lactic Acid Level 1.41 Objective Exam Last Set of Vital Signs Vital Signs Date Time Temp Pulse Resp B/P (MAP) Pulse Ox O2 Delivery O2 Flow Rate FiO2 01/21/19 12:47 78 01/21/19 08:30 36.4 20 170/98 (122) 97 Room Air Capillary Refill : Less Than 3 Seconds I&O Intake and Output 01/21/19 00:00 Intake Total 3610 ml Output Total 1000 ml Balance 2610 ml Intake Oral 2610 ml IV Total 1000 ml Output Urine Total 1000 ml # Voids 4 # Bowel Movements 7 Daily Weight Change No No General: Alert, No Acute Distress Lungs: Clear to Auscultation, Normal Air Movement Heart: Regular Rate, No Murmurs Abdomen: Normal Bowel Sounds, Soft, Other (diffuse ttp) Psych/Mental Status: Mental Status NL Results/Procedures Lab Laboratory Tests 01/20/19 20:47: Glucometer 77 01/21/19 04:46: Glucometer 69L 01/21/19 05:26: White Blood Count 5.5, Red Blood Count 3.54L, Hemoglobin 11.0L, Hematocrit 34L, Mean Corpuscular Volume 97, Mean Corpuscular Hemoglobin 31, Mean Corpuscular Hemoglobin Concent 32, Red Cell Distribution Width 13.8, Platelet Count 222, Mean Platelet Volume 9.9, Sodium Level 140, Potassium Level 3.2L, Chloride Level 108H, Carbon Dioxide Level 22, Anion Gap 10, Blood Urea Nitrogen 8, Creatinine 0.70, Estimat Glomerular Filtration Rate > 60, BUN/Creatinine Ratio 11, Glucose Level 107H, Calcium Level 8.1L 01/21/19 10:08: Glucometer 96 Microbiology 01/19/19 Blood Culture - Preliminary, Resulted No growth 01/20/19 C. difficile DNA Amplification - Final, Resulted 01/20/19 C. difficile GDH Antigen & Toxins - Final, Resulted 01/20/19 Stool Culture - Preliminary, Resulted Culture In Progress Radiology CT abd/pelvis 01/19- hepatic steatosis, right adrenal 1.6 cm nodule, enteritis Assessment/Plan Assessment/Plan (1) C. difficile colitis Status: Acute Assessment & Plan: Started oral vancomycin. IV rehydration. Initial leukocytosis and lactic acidosis resolved. 01/21 continue supportive care, still with large volume diarrhea and electrolyte disturbances on IVF. (2) Adrenal nodule Status: Acute Assessment & Plan: Recommend hormone testing when illness resolved. (3) Diabetes Status: Chronic Assessment & Plan: Sliding scale insulin Qualifiers: (4) Hypokalemia Status: Acute Assessment & Plan: Replace and recheck (5) Hypocalcemia Status: Acute (6) Hematuria Status: Acute Assessment & Plan: Microscopic, CT okay for kidneys, is a non-smoker. Consider further work-up outpatient. (7) DVT prophylaxis Status: Acute Assessment & Plan: Enoxaparin Clinical Quality Measures DVT/VTE Risk/Contraindication: Risk Factor Score Per Nursin RFS Level Per Nursing on Admit: 4+=Very High LOUIS CRANDALL MD Jan 21, 2019 14:59 POS
[2019-01-21] MEDS: D5 NS W/KCL 20 MEQ/L 1,000 ML IV SCH (17:14)
[2019-01-22] MEDS: VANCOMYCIN ORAL 250 MG/5 ML 120 ML PO SCH ×4 (00:33→06:27)
[2019-01-22 03:01] VITALS: BP 178/94
[2019-01-22] MEDS: D5 NS W/KCL 20 MEQ/L 1,000 ML IV SCH (03:27)
[2019-01-22] MEDS: ENOXAPARIN 40 MG/0.4 ML (LOVENOX) SYR SQ SCH (05:11)
[2019-01-22 06:24] LABS: BUN/CREATININE RATIO 6; CALCIUM 8.9 MG/DL (8.5-10.1); CARBON DIOXIDE 24 MMOL/L (21-32); CHLORIDE 105 MMOL/L (98-107); CREATININE SERUM 0.71 MG/DL (0.60-1.30); GFR ESTIMATED > 60; GLUCOSE 108 MG/DL (70-105); MAGNESIUM 2.1 MG/DL (1.6-2.4); POTASSIUM 3.8 MMOL/L (3.6-5.0); SODIUM 141 MMOL/L (135-145)
[2019-01-22] MEDS: inSUlin ASPART (NovoLOG) 1 UNIT/0.01 ML (CHARGE PER UNIT) SC SCH (06:25)
[2019-01-22] MEDS: VENlafaxine XR 75 MG (EFFEXOR XR) CAP PO SCH (06:27)
[2019-01-22 08:00] VITALS: BP 156/77
[2019-01-22] MEDS ORDERED: VANC125S PO ×2 (08:17→09:40)
[2019-01-22] MEDS: meTOprolol TARTRATE 50 MG (LOPRESSOR) TAB PO SCH (08:56)
[2019-01-22] MEDS: PANTOPRAZOLE 40 MG (PROTONIX) TAB PO SCH (08:56)
[2019-01-22] MEDS: CHOLESTYRAMINE 4 GM (QUESTRAN LITE, PREVALITE) PKT PO SCH (08:57)
--- NOTE | 2019-01-22 09:47 | Discharge Summary ---
Discharge Summary Hospital Course Problems/Diagnosis: (1) C. difficile colitis Status: Acute Assessment & Plan: Started oral vancomycin. IV rehydration. Initial leuk ocytosis and lactic acidosis resolved. 01/21 continue supportive care, still with large volume diarrhea and electrolyte disturbances on IVF. 01/22- stool volume decreasing and consistency improved, maintaining good PO, discharged with remainder of vancomycin from inpatient pharmacy. (2) Adrenal nodule Status: Acute Assessment & Plan: Recommend hormone testing when illness resolved. (3) Diabetes Status: Chronic Assessment & Plan: Sliding scale insulin used inpatient. Qualifiers: (4) Hypokalemia Status: Acute Assessment & Plan: Replaced (5) Hypocalcemia Status: Acute (6) Hematuria Status: Acute Assessment & Plan: Microscopic, CT okay for kidneys, is a non-smoker. Consider further work-up outpatient. Hospital Course Date of Admission: Jan 19, 2019 at 20:56 Admission Diagnosis : Colitis Diarrhea Family Physician/Provider: Myrna Sinha Date of Discharge: 01/22/19 Discharge Diagnosis: See problem list Hospital Course: See problem list Labs and Pending Lab Test: Laboratory Tests 01/21/19 10:08: Glucometer 96 01/21/19 15:44: Glucometer 84 01/21/19 20:15: Glucometer 114H 01/22/19 05:03: Glucometer 111H 01/22/19 05:50: Sodium Level 141, Potassium Level 3.8, Chloride Level 105, Carbon Dioxide Level 24, Anion Gap 12, Blood Urea Nitrogen 4L, Creatinine 0.71, Estimat Glomerular Filtration Rate > 60, BUN/Creatinine Ratio 6, Glucose Level 108H, Calcium Level 8.9, Magnesium Level 2.1 Microbiology 01/19/19 Blood Culture - Preliminary, Resulted No growth 01/20/19 C. difficile DNA Amplification - Final, Resulted 01/20/19 C. difficile GDH Antigen & Toxins - Final, Resulted 01/20/19 Stool Culture - Preliminary, Resulted Culture In Progress Home Meds Active Vancomycin ORAL Compound 250mg/5 ml (Vancomycin HCl) 125 Mg/2.5 Ml Syringe 125 Mg PO QID 8 Days Inpt pharmacy to relabel for home use. Reported Ibuprofen 200 Mg Tablet 800 Mg PO Q8H PRN Venlafaxine HCl ER (Venlafaxine HCl) 75 Mg Cap.er.24h 75 Mg PO DAILY Omeprazole 40 Mg Capsule.dr 40 Mg PO DAILY Metoprolol Tartrate 50 Mg Tablet 50 Mg PO BID Assessment/Pt DC Instructions Off work until treatment completed. Follow up with Chema Donahue on 01/27 at 11 am. Activity as Tolerated: Yes Orders-Post D/C & Referrals Pneu Vac Indicated: Yes Discharge Physical Examination Allergies: Coded Allergies: prochlorperazine (Verified Allergy, Severe, Anaphylaxis, 01/19/19) General Appearance: No Apparent Distress, WD/WN Respiratory: Lungs Clear, Normal Breath Sounds Cardiovascular: Regular Rate, Rhythm, No Murmur Gastrointestinal: Normal Bowel Sounds, Non Tender, Soft Neurologic/Psychiatric: Alert, Normal Mood/Affect Copy Copies To 1: Ezekiel Donahue APRN Discharge Summary Date of Admission Jan 19, 2019 at 20:56 Date of Discharge Discharge Date: Jan 22, 2019 Clinical Quality Measures DVT/VTE Risk/Contraindication: Risk Factor Score Per Nursin RFS Level Per Nursing on Admit: 4+=Very High LOUIS CRANDALL MD Jan 22, 2019 09:45 POS
[2019-01-22 11:01] VITALS: BP 156/77
== END 2019-01-22 09:39 | disposition home or self-care (01) ==
LOC: ER FS 17:17 → 4TH 20:56
PROVIDERS: ADMIT Internal Medicine; ATTEND Family Medicine
DX: A04.72 Enterocolitis due to Clostridium difficile, not specified as recurrent (principal); E11.9 Type 2 diabetes mellitus without complications; E87.6 Hypokalemia; E83.51 Hypocalcemia; I10 Essential (primary) hypertension; R31.9 Hematuria, unspecified; R19.7 Diarrhea, unspecified; E27.9 Disorder of adrenal gland, unspecified; Z88.8 Allergy status to other drugs, medicaments and biological substances; Z90.49 Acquired absence of other specified parts of digestive tract; Z90.710 Acquired absence of both cervix and uterus
CPT/HCPCS: 36415; 51701; 74177; 80048; 80053; 81000; 82962; 83605; 83690; 83735; 84703; 85007; 85025; 85027; 87015; 87040; 87045; 87046; 87324; 87449; 87493; 87899; 96361; 96374; 96375; 96376; G0378

== ENCOUNTER 2020-03-10 13:33 | Emergency (ER) | payer SELFPAY ==
[~2020-03-10] VITALS: Ht 149.8 cm; Wt 102.0 kg
[~2020-03-10 13:33] MED LIST: CIPR-225 PO; HYOS-19; IBUP-2473 PO; LISI40TA; METO50TA15 PO; METR500T PO; OMEP40CA27 PO; VANC125S PO; VENL75CA93 PO
--- NOTE | 2020-03-10 13:50 | ED Chest Pain ---
General Stated Complaint: HYPERTENSION; HEADACHE; ALTERED VISION; NAUSEA Source: patient History of Present Illness Date Seen by Provider: Mar 10, 2020 Time Seen by Provider: 13:50 Initial Comments 49-year-old female presents from the outpatient clinic where she was seen for routine physical today. Noted to have higher than typical blood pressure and complaining of some left-sided shoulder pain for the past 3 days. An EKG was done, which was normal, however due to her blood pressure and left shoulder pain with family history of coronary artery disease she was sent to the ER for further evaluation. Patient that she's been doing some moving of furniture the past few days and that may have precipitated her left shoulder pain. Denies any recent illness, fever or chills, cough or shortness of air. Denies chest pain, abdominal pain, nausea, vomiting. Past medical history significant for anxiety, diabetes and hypertension. Her blood sugars have been well-controlled with the recent A1c 5.2. Patient is been taking metoprolol for about 10 years. Allergies and Home Medications Allergies Coded Allergies: prochlorperazine (Verified Allergy, Severe, Anaphylaxis, 01/19/19) Home Medications Metoprolol Tartrate 50 Mg Tablet, 50 MG PO BID, (Reported) Omeprazole 40 Mg Capsule.dr, 40 MG PO DAILY, (Reported) Venlafaxine HCl 75 Mg Cap.er.24h, 75 MG PO DAILY, (Reported) Patient Home Medication List Home Medication List Reviewed: Yes Review of Systems Review of Systems Constitutional: No chills, No fever, No malaise, No weakness EENTM: No Symptoms Reported Respiratory: Denies Cough, Denies Shortness of Air Cardiovascular: Denies Chest Pain, Denies Edema, Denies Lightheadedness, Denies Palpitations, Denies Syncope Gastrointestinal: Denies Abdominal Pain, Denies Constipated, Denies Diarrhea, Denies Nausea, Denies Poor Appetite, Denies Vomiting Musculoskeletal: No back pain, No joint pain, No joint swelling; muscle pain (left shoulder area pain); No neck pain Skin: No change in color, No rash Psychiatric/Neurological: Denies Headache, Denies Numbness, Denies Paresthesia, Denies Weakness Past Vjfpnmu-Hdjupe-Sifprt Hx Past Med/Social Hx: Reviewed Nursing Past Med/Soc Hx Patient Social History 2nd Hand Smoke Exposure: No Recent Foreign Travel: No Contact w/Someone Who Travel: No Recent Hopitalizations: No Seasonal Allergies Seasonal Allergies: No Past Medical History Surgeries: Yes (L lateral knee release) Gallbladder, Hysterectomy, Orthopedic Respiratory: No Cardiac: Yes Hypertension Neurological: No 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 oz. kg; 48.04 BMI Method: General Appearance: No Apparent Distress, WD/WN HEENT: PERRL/EOMI, Normal ENT Inspection Neck: Full Range of Motion, Non Tender, Supple Respiratory: Lungs Clear, Normal Breath Sounds, No Accessory Muscle Use, No Respiratory Distress Cardiovascular: Regular Rate, Rhythm, No Edema, No Gallop, No JVD, Normal Peripheral Pulses Gastrointestinal: Non Tender, Soft Extremity: Normal Capillary Refill, Normal Inspection, Normal Range of Motion, Non Tender, No Calf Tenderness Neurologic/Psychiatric: Alert, Oriented x3, No Motor/Sensory Deficits, Normal Mood/Affect Skin: Normal Color, Warm/Dry Progress/Results/Core Measures Results/Orders Lab Results Laboratory Tests Test 03/10/20 13:55 Range/Units White Blood Count 10.1 4.3-11.0 10^3/uL Red Blood Count 4.79 4.35-5.85 10^6/uL Hemoglobin 14.3 11.5-16.0 G/DL Hematocrit 44 35-52 % Mean Corpuscular Volume 93 80-99 FL Mean Corpuscular Hemoglobin 30 25-34 PG Mean Corpuscular Hemoglobin Concent 32 32-36 G/DL Red Cell Distribution Width 13.6 10.0-14.5 % Platelet Count 342 130-400 10^3/uL Mean Platelet Volume 9.0 7.4-10.4 FL Immature Granulocyte % (Auto) 0 % Neutrophils (%) (Auto) 51 42-75 % Lymphocytes (%) (Auto) 43 12-44 % Monocytes (%) (Auto) 5 0-12 % Eosinophils (%) (Auto) 1 0-10 % Basophils (%) (Auto) 0 0-10 % Neutrophils # (Auto) 5.1 1.8-7.8 X 10^3 Lymphocytes # (Auto) 4.3 H 1.0-4.0 X 10^3 Monocytes # (Auto) 0.5 0.0-1.0 X 10^3 Eosinophils # (Auto) 0.1 0.0-0.3 10^3/uL Basophils # (Auto) 0.0 0.0-0.1 10^3/uL Immature Granulocyte # (Auto) 0.0 0.0-0.1 10^3/uL Sodium Level 142 135-145 MMOL/L Potassium Level 4.3 3.6-5.0 MMOL/L Chloride Level 107 98-107 MMOL/L Carbon Dioxide Level 26 21-32 MMOL/L Anion Gap 9 5-14 MMOL/L Blood Urea Nitrogen 18 7-18 MG/DL Creatinine 0.72 0.60-1.30 MG/DL Estimat Glomerular Filtration Rate > 60 BUN/Creatinine Ratio 25 Glucose Level 96 70-105 MG/DL Calcium Level 9.1 8.5-10.1 MG/DL Corrected Calcium 8.9 8.5-10.1 MG/DL Total Bilirubin 0.3 0.1-1.0 MG/DL Aspartate Amino Transf (AST/SGOT) 14 5-34 U/L Alanine Aminotransferase (ALT/SGPT) 20 0-55 U/L Alkaline Phosphatase 117 40-136 U/L Troponin I < 0.30 <0.30 NG/ML Total Protein 7.3 6.4-8.2 GM/DL Albumin 4.3 3.2-4.5 GM/DL My Orders Orders - YAEL SORENSEN DO Cbc With Automated Diff (03/10/20 13:49) Comprehensive Metabolic Panel (03/10/20 13:49) Troponin I Fs (03/10/20 13:49) Ekg Tracing (03/10/20 13:49) Vital Signs/I&O 03/10/20 13:35 Temp 37.1 Pulse 71 Resp 18 B/P (MAP) 164/100 (121) O2 Delivery Room Air Initial ECG Impression Date: Mar 10, 2020 Initial ECG Impression Time: 14:05 Initial ECG Rate: 67 Initial ECG Rhythm: Normal Sinus Initial ECG Intervals: Normal Initial ECG Impression: Normal Departure Impression Primary Impression: Hypertension Qualified Codes: I10 - Essential (primary) hypertension Disposition: 01 HOME, SELF-CARE Condition: Stable Departure-Patient Inst. Decision time for Depature: 14:44 Referrals: MANAN RAYMUNDO (PCP) Primary Care Physician [facility] (Family) Primary Care Physician Patient Instructions: High Blood Pressure (DC) Add. Discharge Instructions: Follow up with your PCP regarding your blood pressure in 2 weeks. You are advised to check your BP 3 times weekly and record it to show your PCP later. YAEL SORENSEN DO Mar 10, 2020 13:50
[2020-03-10 14:02] LABS: WHITE BLOOD COUNT 10.1 10^3/uL (4.3-11.0)
[2020-03-10 14:03] LABS: BASOPHILS % (AUTO) 0 % (0-10); EOSINOPHILS % (AUTO) 1 % (0-10); HEMATOCRIT 44 % (35-52); HEMOGLOBIN 14.3 G/DL (11.5-16.0); LYMPHOCYTES % (AUTO) 43 % (12-44); MEAN CORPUSCULAR HEMOGLOBIN 30 PG (25-34); MEAN CORPUSCULAR HGB CONC 32 G/DL (32-36); MEAN CORPUSCULAR VOLUME 93 FL (80-99); MONOCYTES % (AUTO) 5 % (0-12); NEUTROPHILS % (AUTO) 51 % (42-75); PLATELET COUNT 342 10^3/uL (130-400)
[2020-03-10 14:04] LABS: EOSINOPHILS # (AUTO) 0.1 10^3/uL (0.0-0.3); LYMPHOCYTES # (AUTO) 4.3 X 10^3 (1.0-4.0); MONOCYTES # (AUTO) 0.5 X 10^3 (0.0-1.0); NEUTROPHILS # (AUTO) 5.1 X 10^3 (1.8-7.8)
[2020-03-10] MEDS ORDERED: Trulicity (14:20)
[2020-03-10] MEDS ORDERED: Invokana (14:20)
[2020-03-10 14:28] LABS: BUN/CREATININE RATIO 25; CARBON DIOXIDE 26 MMOL/L (21-32); CHLORIDE 107 MMOL/L (98-107); CREATININE SERUM 0.72 MG/DL (0.60-1.30); GFR ESTIMATED > 60; POTASSIUM 4.3 MMOL/L (3.6-5.0); SODIUM 142 MMOL/L (135-145)
[2020-03-10 14:29] LABS: ALANINE AMINOTRANSFERASE 20 U/L (0-55); ALBUMIN 4.3 GM/DL (3.2-4.5); ALKALINE PHOSPHATASE 117 U/L (40-136); BILIRUBIN,TOTAL 0.3 MG/DL (0.1-1.0); CALCIUM 9.1 MG/DL (8.5-10.1); GLUCOSE 96 MG/DL (70-105); TOTAL PROTEIN 7.3 GM/DL (6.4-8.2)
[2020-03-10 14:50] VITALS: BP 132/90
== END 2020-03-10 14:50 | disposition home or self-care (01) ==
LOC: EDUNIT# 13:33 → ER FS 13:34
DX: I10 Essential (primary) hypertension (principal); Z88.8 Allergy status to other drugs, medicaments and biological substances
CPT/HCPCS: 36415; 80053; 84484; 85025

== ENCOUNTER 2021-02-10 18:45 | Emergency (ER) | payer SELFPAY ==
[~2021-02-10] VITALS: Ht 149.8 cm; Wt 95.0 kg
[~2021-02-10 18:45] MED LIST changes: +Invokana; -LISI40TA; +LISI40TA9; -OMEP40CA27 PO; +OMEP40CA6 PO; +Trulicity
--- OUTSIDE RECORDS SUMMARY | 2021-02-10 18:49 | XMS REPORT | Clinical Summary ---
Author Author [facility] Organization [facility] Address Unknown Phone Unavailable Care Team Providers Care Pediatric Physician Assistant Name Role Phone Brandon Aguayo MD Unavailable Charisma Oconnor MD Unavailable Myrna Sinha APRN PCP Source Comments Some departments are not documenting in the electronic medical record. If you d o not see the information that you expected, contact Release of Information in [facility] [employer] Information Management department at [phone] for further assistan ce in locating additional records.[facility] Allergies Comments Active Allergy Reactions Severity Noted Date Prochlorperazine ANAPHYLAXIS High 12/01/2014 Oxycodone-Acetaminophen HALLUCINATION High 2014 S Medications End Date Status Medication Sig Dispensed Refills Start Date Active omeprazole DR(+) Take 40 mg by 0 (PRILOSEC) 40 mg capsule mouth daily. Active ibuprofen (MOTRIN) 800 mg Take 800 mg 0 tablet by mouth twice daily. Active ergocalciferol (VITAMIN Take 1 Cap by 0 D-2) 50,000 unit capsule mouth every 7 days. Active amLODIPine (NORVASC) 10 Take 1 Tab by 30 Tab 11 11/29/201 mg tablet mouth daily. 6 Active Problems Problem Noted Date Myalgia 12/01/2014 Arthralgia 12/01/2014 Fatigue 12/01/2014 Snoring 12/01/2014 Anxiety 12/01/2014 Hiatal hernia 12/01/2014 Chronic LBP 12/01/2014 History of recurrent miscarriages, not currently preg nant 12/01/2014 Severe obesity (BMI 35.0-35.9 with rita rbidity) Essential hypertension Multinodular goiter Overview: Formatting of this note might be differ ent from the original. Nodules Hypovitaminosis D Surgical History Surgery Date Site/Laterality Comments HX HYSTERECTOMY 2008 KNEE SURGERY 2005 Left HX CHOLECYSTECTOMY 2012 COLONOSCOPY 11/05/15 Nadine Courtney Medical History Medical History Date Comments Rheumatoid arthritis (HCC) Fatty liver Multinodular goiter Nodules Hiatal hernia Essential hypertension GERD (gastroesophageal reflux disease) Depression Severe obesity (BMI 35.0-35.9 with comorbidity) (HCC) Hypovitaminosis D Multinodular goiter Family History Medical History Relation Name Comments Heart Disease Father Stroke Father Cancer Maternal thyroid cancer Grandmother Arthritis Mother Arthritis-osteo Mother Cancer Other Heart Disease Paternal Grandfather Relation Name Status Comments Father Alive Maternal Grandmother Mother Alive Other Paternal Grandfather Social History Date Tobacco Use Types Packs/Day Years Used Quit: 12/01/1992 Former Smoker 0.5 2 Smokeless Tobacco: Never Used Tobacco Cessation: Counseling Given: No Comments Alcohol Use Standard Drinks/Week special occasions - 1-2x/year Yes 0 (1 standard drink = 0.6 o z pure alcohol) Alcohol Habits Answer Date Recorded How often do you have a drink containing alcohol? No t asked How many drinks containing alcohol do you have on No t asked a typical day when you are drinking? How often do you have six or more drinks on one Not asked occasion? Comment: special occasions - 1-2x/year 11/30/19 16 Sex Assigned at Date Recorded Not on file Last Filed Vital Signs Reading Time Taken Comments Vital Sign 150/94 11/30/2015 9:10 AM CDT Blood Pressure 86 11/30/2015 9:10 AM CDT Pulse 37.1 C (98.7 F) 12/01/2014 1:00 PM CDT Temperature 16 12/01/2014 1:00 PM CDT Respiratory Rate 97% 12/01/2014 1:00 PM CDT Oxygen Saturation - - Inhaled Oxygen Concentration 104.8 kg (231 lb) 11/30/2015 9:10 AM CDT Weight 149.9 cm (4' 11") 11/30/2015 9:10 AM CDT Height 46.66 11/30/2015 9:10 AM CDT Body Mass Index Plan of Treatment Health Maintenance Due Date Last Done Comments HIV SCREENING 1985 DTAP/TDAP VACCINES (1 - 1988 Tdap) HEPATITIS C SCREENING 1988 PHYSICAL (COMPREHENSIVE) 1988 EXAM CERVICAL CANCER SCREENING 08/11/1991 BREAST CANCER SCREENING 2010 COLORECTAL CANCER 2020 SCREENING SHINGLES RECOMBINANT 2020 VACCINE (1 of 2) INFLUENZA VACCINE 10/10/2020 Results Not on filefrom Last 3 Months Insurance Type Payer Benefit Subscriber ID Effective Phone Address Plan / Dates Group Medicaid [facility] [id number] 2015-P [address] [place] [address] [phone] 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
[2021-02-10] MEDS ORDERED: RT-ALBUTEROL/IPRATROPIUM 3 ML (DUONEB) VIAL ONE ×2 (18:50→19:02)
[2021-02-10] MEDS ORDERED: methylPREDNISolone 125 MG (Solu-MEDROL) VIAL ONE (18:55)
[2021-02-10] MEDS ORDERED: RT-ALBUTEROL/IPRATROPIUM 3 ML (DUONEB) VIAL INH ONE (19:00)
[2021-02-10] MEDS ORDERED: EPINEPHrine INJECTION 1 MG/ML AMP IM ONE (19:00)
[2021-02-10] MEDS ORDERED: methylPREDNISolone 125 MG (Solu-MEDROL) VIAL IVP ONE (19:00)
[2021-02-10] MEDS ORDERED: RT-ALBUTEROL SULF 2.5 MG/3 ML PRE-MIX VIAL INH ONE (19:00)
[2021-02-10] MEDS ORDERED: diphenhydrAMINE 50 MG/ML INJ (BENADRYL) IVP ONE (19:00)
[2021-02-10] MEDS ORDERED: EPINEPHrine INJECTION 1 MG/ML AMP ONE (19:03)
[2021-02-10] MEDS ORDERED: diphenhydrAMINE 50 MG/ML INJ (BENADRYL) ONE (19:03)
[2021-02-10 19:10] LABS: HEMATOCRIT 39 % (35-52); HEMOGLOBIN 13.3 g/dL (11.5-16.0); LYMPHOCYTES % (AUTO) 33 % (12-44); MEAN CORPUSCULAR HEMOGLOBIN 31 pg (25-34); MEAN CORPUSCULAR HGB CONC 34 g/dL (32-36); MEAN CORPUSCULAR VOLUME 92 fL (80-99); MONOCYTES % (AUTO) 5 % (0-12); NEUTROPHILS % (AUTO) 60 % (42-75); PLATELET COUNT 345 10^3/uL (130-400)
[2021-02-10 19:11] LABS: BASOPHILS # (AUTO) 0.1 10^3/uL (0.0-0.1); BASOPHILS % (AUTO) 0 % (0-10); EOSINOPHILS # (AUTO) 0.2 10^3/uL (0.0-0.3); EOSINOPHILS % (AUTO) 1 % (0-10); LYMPHOCYTES # (AUTO) 5.3 X 10^3 (1.0-4.0); MONOCYTES # (AUTO) 0.8 X 10^3 (0.0-1.0); NEUTROPHILS # (AUTO) 9.6 X 10^3 (1.8-7.8)
[2021-02-10] MEDS ORDERED: HOLD METFORMIN - RECEIVED CONTRAST 20 ML VIAL IV SCH (19:15)
[2021-02-10] MEDS ORDERED: NS 100 ML (IVPB) BAG IV ONE (19:15)
[2021-02-10] MEDS ORDERED: CATHETER FLUSH 10 ML SYR IV PRN (19:15)
[2021-02-10] MEDS ORDERED: IOHEXOL 350 MG/ML 150 ML (OMNIPAQUE 350) VIAL IV ONE (19:15)
--- NOTE | 2021-02-10 19:25 | Diagnostic Imaging Report ---
INDICATION: Shortness of breath Portable chest 7:02 PM Heart size and pulmonary vascularity are normal. Lungs are clear. There are no effusions or pneumothoraces. IMPRESSION: No acute abnormalities in the chest. Dictated by: Dictated on workstation # [id number]
[2021-02-10 19:36] LABS: FIBRIN DEGRADATION PRODUCTS 0.35 UG/ML (0.00-0.49); INR 0.9 (0.8-1.4); PROTHROMBIN TIME PATIENT 12.6 SEC (12.2-14.7)
[2021-02-10 19:38] LABS: ALKALINE PHOSPHATASE 119 U/L (40-136); BILIRUBIN,TOTAL 0.3 MG/DL (0.1-1.0); BUN/CREATININE RATIO 22; CALCIUM 9.5 MG/DL (8.5-10.1); CARBON DIOXIDE 21 MMOL/L (21-32); CHLORIDE 99 MMOL/L (98-107); CREATININE SERUM 0.79 MG/DL (0.60-1.30); GFR ESTIMATED 77; GLUCOSE 103 MG/DL (70-105); POTASSIUM 3.5 MMOL/L (3.6-5.0); SODIUM 138 MMOL/L (135-145)
[2021-02-10 19:39] LABS: ALANINE AMINOTRANSFERASE 24 U/L (0-55); ALBUMIN 4.4 GM/DL (3.2-4.5); TOTAL PROTEIN 7.9 GM/DL (6.4-8.2)
--- NOTE | 2021-02-10 19:44 | Diagnostic Imaging Report ---
PROCEDURE: CT angiography of the chest with contrast. TECHNIQUE: Multiple contiguous axial images were obtained through the chest after uneventful bolus administration of intravenous contrast. 3D reconstructed CTA MIP acquisitions were also performed. Auto Exposure Controls were utilized during the CT exam to meet ALARA standards for radiation dose reduction. INDICATION: Respiratory distress Epiglottis and larynx appear normal. Trachea and esophagus are unremarkable. There are no vascular anomalies. Aorta is unremarkable. There are no pulmonary emboli. There is no evidence of right ventricular strain or cardiomegaly. There are no effusions or pneumothoraces. Lungs are clear. There is no hilar, mediastinal or axillary lymphadenopathy. There is 1.6 cm right adrenal nodule which is likely an adenoma. IMPRESSION: No acute abnormalities in the chest Dictated by: Dictated on workstation # [id number]
[2021-02-10 19:46] LABS: BAND NEUTROPHILS 0 %; BASOPHILS % (MANUAL) 0 %; EOSINOPHILS % (MANUAL) 2 %; LYMPHOCYTES % (MANUAL) 34 %; MONOCYTES % (MANUAL) 5 %; NEUTROPHILS % (MANUAL) 59 %
--- NOTE | 2021-02-10 19:50 | Diagnostic Imaging Report ---
PROCEDURE: CT neck soft tissue with contrast. TECHNIQUE: Multiple contiguous axial images were obtained through the neck after the administration of contrast. Auto Exposure Controls were utilized during the CT exam to meet ALARA standards for radiation dose reduction. INDICATION: Dysphagia with respiratory distress Epiglottis is normal. There is no prevertebral soft tissue swelling. There is no pharyngeal mucosal thickening. The parapharyngeal fat planes are well-preserved. Neurovascular bundles are unremarkable. Thyroid appears normal. Salivary glands appear normal. There are no pathologic masses or fluid collections seen. Major venous structures are patent. There are some small cervical lymph nodes but none that are pathologically enlarged. Both vertebral arteries are widely patent. The common, internal and external carotid arteries appear to be widely patent. IMPRESSION: Unremarkable soft tissue neck. Dictated by: Dictated on workstation # [id number]
[2021-02-10] MEDS ORDERED: FUROSEMIDE 40 MG/4 ML INJ (LASIX) IVP ONE (20:30)
[2021-02-10] MEDS ORDERED: LORazepam INJ 2 MG/ML (ATIVAN) VIAL IVP ONE (20:30)
--- NOTE | 2021-02-10 20:37 | ED General ---
General Chief Complaint: Respiratory Problems Stated Complaint: SOB,FEVER,SORE THROAT Nursing Triage Note: Patient is extremely SOB upon arrival to the ER. Patient is unable to talk in complete sentences and has an intermittent barking cough. Patient states she was at the clinic today and tested positive for strep throat. Patient states that she was tested for covid but does not know what the result is. Patient states she went to the pharmacy to fill her meds, got home and immediately became short of breath. Patient states that it "feels like my upper airway is swollen" and points to the upper portion of her neck. History of Present Illness Date Seen by Provider: Feb 10, 2021 Time Seen by Provider: 20:31 Initial Comments Patient presenting to emergency department for evaluation of sudden onset shortness of breath that she says started after returning home from the doctor's office. She says since yesterday she has had cough congestion and sore throat and at the clinic she tested positive for strep throat but had not filled her Augmentin yet. She has a nebulizer at home but she did not use it. She says she did have a Covid test but she does not know what the result is as it is a send off. Patient appears to be in respiratory distress and says that she feels tightening and closing in her throat. She had not taken any of her medication and she denied any new soaps detergents foods or anything else that she could think of. There was no rash. Her lung sounds are diminished with wheezing auscultated. She appears anxious and short of breath but her oxygen saturation was 100%. Allergies and Home Medications Allergies Coded Allergies: prochlorperazine (Verified Allergy, Severe, Anaphylaxis, 01/19/19) Patient Home Medication List Home Medication List Reviewed: Yes Metoprolol Tartrate (Metoprolol Tartrate) 50 Mg Tablet, 50 MG PO BID, (Reported) Entered as Reported by: BORIS MONTELONGO on 01/19/192017 Omeprazole (Omeprazole) 40 Mg Capsule.dr, 40 MG PO DAILY, (Reported) Entered as Reported by: NATE KHAN on 01/20/19 1324 Venlafaxine HCl (Venlafaxine HCl ER) 75 Mg Cap.er.24h, 75 MG PO DAILY, (Reported) Entered as Reported by: NATE KHAN on 01/20/19 1324 [Invokana] , (Reported) Entered as Reported by: BORIS MONTELONGO on 03/10/201419 [Trulicity] , (Reported) Entered as Reported by: BORIS MONTELONGO on 03/10/201419 Review of Systems Review of Systems Constitutional: no symptoms reported EENTM: throat pain, throat swelling Respiratory: cough, short of breath, wheezing Cardiovascular: no symptoms reported Gastrointestinal: no symptoms reported Musculoskeletal: no symptoms reported Skin: no symptoms reported Psychiatric/Neurological: No Symptoms Reported All Other Systems Reviewed Negative Unless Noted: Yes Past Gddrxet-Kwvcwv-Fdihwk Hx Patient Social History Tobacco Use?: No Substance use?: No Alcohol Use?: No Seasonal Allergies Seasonal Allergies: No Past Medical History Surgery/Hospitalization HX: Tested positive for strep today, had covid swab but unknown result Surgeries: Yes (L lateral knee release, L breast cyst) Gallbladder, Hysterectomy, Orthopedic Respiratory: No Cardiac: Yes Hypertension Neurological: No 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 oz. kg; 42.00 BMI Method: General Appearance: Anxious, Severe Distress (Respiratory) HEENT: PERRL/EOMI Neck: Normal Inspection, Non Tender, Supple Respiratory: Expiration, Inspiration, Wheezing Cardiovascular: Tachycardia Gastrointestinal: Non Tender, Soft Back: Normal Inspection Extremity: Normal Capillary Refill, No Pedal Edema Neurologic/Psychiatric: Alert, Oriented x3 Skin: Warm/Dry Focused Exam Lactate Level 02/10/21 18:54: Lactic Acid Level 2.94*H Lactic Acid Level Laboratory Tests Test 02/10/21 18:54 Lactic Acid Level 2.94 MMOL/L (0.50-2.00) *H Progress/Results/Core Measures Suspected Sepsis SIRS Temperature: Pulse: 102 Respiratory Rate: 28 Laboratory Tests 02/10/21 18:54: White Blood Count 16.0H Blood Pressure 170 /89 Mean: 116 02/10/21 18:54: Lactic Acid Level 2.94*H Laboratory Tests 02/10/21 18:54: Creatinine 0.79, INR Comment 0.9, Platelet Count 345, Total Bilirubin 0.3 Results/Orders Lab Results Laboratory Tests Test 02/10/21 18:54 Range/Units White Blood Count 16.0 H 4.3-11.0 10^3/uL Red Blood Count 4.23 3.80-5.11 10^6/uL Hemoglobin 13.3 11.5-16.0 g/dL Hematocrit 39 35-52 % Mean Corpuscular Volume 92 80-99 fL Mean Corpuscular Hemoglobin 31 25-34 pg Mean Corpuscular Hemoglobin Concent 34 32-36 g/dL Red Cell Distribution Width 12.7 10.0-14.5 % Platelet Count 345 130-400 10^3/uL Mean Platelet Volume 9.0 9.0-12.2 fL Immature Granulocyte % (Auto) 0 % Neutrophils (%) (Auto) 60 42-75 % Lymphocytes (%) (Auto) 33 12-44 % Monocytes (%) (Auto) 5 0-12 % Eosinophils (%) (Auto) 1 0-10 % Basophils (%) (Auto) 0 0-10 % Neutrophils # (Auto) 9.6 H 1.8-7.8 X 10^3 Lymphocytes # (Auto) 5.3 H 1.0-4.0 X 10^3 Monocytes # (Auto) 0.8 0.0-1.0 X 10^3 Eosinophils # (Auto) 0.2 0.0-0.3 10^3/uL Basophils # (Auto) 0.1 0.0-0.1 10^3/uL Immature Granulocyte # (Auto) 0.1 0.0-0.1 10^3/uL Neutrophils % (Manual) 59 % Lymphocytes % (Manual) 34 % Monocytes % (Manual) 5 % Eosinophils % (Manual) 2 % Basophils % (Manual) 0 % Band Neutrophils 0 % Prothrombin Time 12.6 12.2-14.7 SEC INR Comment 0.9 0.8-1.4 Activated Partial Thromboplast Time 28 24-35 SEC D-Dimer 0.35 0.00-0.49 UG/ML Sodium Level 138 135-145 MMOL/L Potassium Level 3.5 L 3.6-5.0 MMOL/L Chloride Level 99 98-107 MMOL/L Carbon Dioxide Level 21 21-32 MMOL/L Anion Gap 18 H 5-14 MMOL/L Blood Urea Nitrogen 17 7-18 MG/DL Creatinine 0.79 0.60-1.30 MG/DL Estimat Glomerular Filtration Rate 77 BUN/Creatinine Ratio 22 Glucose Level 103 70-105 MG/DL Lactic Acid Level 2.94 *H 0.50-2.00 MMOL/L Calcium Level 9.5 8.5-10.1 MG/DL Corrected Calcium 9.2 8.5-10.1 MG/DL Total Bilirubin 0.3 0.1-1.0 MG/DL Aspartate Amino Transf (AST/SGOT) 16 5-34 U/L Alanine Aminotransferase (ALT/SGPT) 24 0-55 U/L Alkaline Phosphatase 119 40-136 U/L Troponin I < 0.30 <0.30 NG/ML Pro-B-Type Natriuretic Peptide 137.2 H <75.0 PG/ML Total Protein 7.9 6.4-8.2 GM/DL Albumin 4.4 3.2-4.5 GM/DL My Orders Orders - SOLO CARLSON DO Albuterol/Ipra Inhalation Soln (Duoneb I (02/10/21 18:50) Iv/Invasive Line Insertion .IV start (02/10/21 18:54) Ekg Tracing (02/10/21 18:54) Chest 1 View Ap/Pa Only (02/10/21 18:54) Troponin I Fs (02/10/21 18:54) Cbc With Automated Diff (02/10/21 18:54) Comprehensive Metabolic Panel (02/10/21 18:54) Fibrin Degradation Products (02/10/21 18:54) Lactic Acid Analyzer (02/10/21 18:54) Partial Thromboplastin Time (02/10/21 18:54) Probnp Fs (02/10/21 18:54) Protime With Inr (02/10/21 18:54) Albuterol/Ipra Inhalation Soln (Duoneb I (02/10/21 19:00) Methylprednisolone Sod Succ (Solu-Medrol (02/10/21 19:00) Svn Small Volume Nebulizer (02/10/21 18:54) Methylprednisolone Sod Succ (Solu-Medrol (02/10/21 18:55) Albuterol Pre-Mix Nebs (Rt) (Proventil (02/10/21 19:00) Svn Small Volume Nebulizer (02/10/21 19:00) Ct Neck (Soft Tissue) W (02/10/21 19:00) Ct Angio Chest W (02/10/21 19:00) Epinephrine 1 Mg Injection (Adrenalin I (02/10/21 19:00) Diphenhydramine Injection (Benadryl Inje (02/10/21 19:00) Albuterol/Ipra Inhalation Soln (Duoneb I (02/10/21 19:02) Diphenhydramine Injection (Benadryl Inje (02/10/21 19:03) Epinephrine 1 Mg Injection (Adrenalin I (02/10/21 19:03) Manual Differential (02/10/21 18:54) Iohexol Injection (Omnipaque 350 Mg/Ml 1 (02/10/21 19:15) Received Contrast (Hold Metformin- Contr (02/10/21 19:15) Sodium Chloride Flush (Catheter Flush Sy (02/10/21 19:15) Ns (Ivpb) (Sodium Chloride 0.9% Ivpb Bag (02/10/21 19:15) Monitor-Rhythm Ecg Trace Only (02/10/21 19:24) Ed Iv/Invasive Line Start (02/10/21 19:42) Furosemide Injection (Lasix Injection) (02/10/21 20:30) Lorazepam Injection (Ativan Injection) (02/10/21 20:30) Medications Given in ED Current Medications Medications Dose Ordered Sig/Makayla Route Start Time Stop Time Status Last Admin Dose Admin Albuterol Sulfate 10 mg ONCE ONCE INH 02/10/21 19:00 02/10/21 19:01 DC 02/10/21 19:12 10 MG Albuterol/ Ipratropium 3 ml ONCE ONCE INH 02/10/21 19:00 02/10/21 19:01 DC 02/10/21 18:51 3 ML Diphenhydramine HCl 50 mg ONCE ONCE IVP 02/10/21 19:00 02/10/21 19:03 DC 02/10/21 19:07 50 MG Epinephrine HCl 0.3 mg ONCE ONCE IM 02/10/21 19:00 02/10/21 19:03 DC 02/10/21 19:08 0.3 MG Iohexol 125 ml ONCE ONCE IV 02/10/21 19:15 02/10/21 19:16 DC 02/10/21 19:19 125 ML Lorazepam 1 mg ONCE ONCE IVP 02/10/21 20:30 02/10/21 20:31 DC 02/10/21 20:30 1 MG Methylprednisolone Sodium Succinate 125 mg ONCE ONCE IVP 02/10/21 19:00 02/10/21 19:01 DC 02/10/21 18:54 125 MG Sodium Chloride 100 ml ONCE ONCE IV 02/10/21 19:15 02/10/21 19:16 DC 02/10/21 19:19 100 ML Vital Signs/I&O 02/10/21 18:48 Temp 36.8 Pulse 102 Resp 28 B/P (MAP) 170/89 (116) Pulse Ox 100 O2 Delivery OxyMask O2 Flow Rate 10.00 Capillary Refill : Less Than 3 Seconds Blood Pressure Mean: 116 Progress Note : Progress Note On initial presentation her differential included bronchospasm versus anaphylaxis versus angioedema versus epiglottitis retropharyngeal abscess or vocal cord dysfunction. I treated her with aggressive nebulized treatments in addition to Solu-Medrol epinephrine and Benadryl. Patient's breathing improved significantly to where she was feeling no upper respiratory symptoms and there was no wheezing on repeat examination. Her oxygen saturation continued to be in the 95 to 98% range. Patient does not have any acute findings on her CT scans. She did have lactic acidosis possibly from hypoxia or tachycardia. She is going to be started on Augmentin and I do not see any reason for her to be hospitalized at this point given her oxygen saturation is normal and her heart rate has improved significantly to the 105 range. Patient was told all incidental findings and the need for follow-up. Given patient appears well with improved vital signs normal oxygen saturation and benign work-up and improved physical exam she will be discharged in stable condition told to take her medications as prescribed follow with primary care provider within 3 to 4 days for recheck and come back to emergency department sooner with worsening pain shortness of breath or other general concerns. Patient aware and agreeable with plan and verbalized understanding of the above instructions. Departure Impression Primary Impression: Bronchospasm Additional Impressions: Dyspnea Qualified Codes: R06.02 - Shortness of breath Leukocytosis Lactic acid acidosis Disposition: HOME, SELF-CARE Condition: Stable Departure-Patient Inst. Referrals: MANAN RAYMUNDO (PCP) Primary Care Physician [facility] (Family) Primary Care Physician Patient Instructions: Acute Bronchitis, Adult (DC) Scripts Prednisone (Prednisone) 20 Mg Tab 40 MG PO DAILY, #8 TAB 0 Refills Prov: SOLO CARLSON DO 02/10/21 SOLO CARLSON DO Feb 10, 2021 20:37
[2021-02-10] MEDS ORDERED: PRD20T PO (20:56)
[2021-02-10 21:00] VITALS: BP 132/68
== END 2021-02-10 21:00 | disposition home or self-care (01) ==
LOC: EDUNIT# 18:45 → ER FS 18:46
DX: J98.01 Acute bronchospasm (principal); R06.00 Dyspnea, unspecified; D72.829 Elevated white blood cell count, unspecified; R00.0 Tachycardia, unspecified; I10 Essential (primary) hypertension; E11.9 Type 2 diabetes mellitus without complications
CPT/HCPCS: 36415; 70491; 71045; 71275; 80053; 83605; 83880; 84484; 85007; 85027; 85379; 85610; 85730; 93005; 93041

== ENCOUNTER 2022-01-12 18:23 | Emergency (ER) | payer SELFPAY ==
[~2022-01-12] VITALS: Ht 149.8 cm; Wt 107.0 kg
[~2022-01-12 18:23] MED LIST changes: +PRD20T PO
[2022-01-12] MEDS ORDERED: ACETAMINOPHEN 500 MG TAB (TYLENOL) PO ONE (18:45)
--- NOTE | 2022-01-12 18:51 | Diagnostic Imaging Report ---
EXAMINATION: Right shoulder radiographs, 3 views. COMPARISON: None. HISTORY: 51-year-old female, right shoulder pain. FINDINGS: The acromioclavicular joint is normally aligned. The humeral head is normally aligned relative to the glenoid. There are mild acromioclavicular degenerative changes without large undersurface osteophyte. There is osteophyte formation arising from the inferior aspect of the humeral head. There are subchondral cystic changes in the humeral head and glenoid. IMPRESSION: 1. Moderate glenohumeral osteoarthritis. 2. Mild acromioclavicular degenerative changes without undersurface osteophyte. 3. No identified acute bony abnormality. Dictated by: Dictated on workstation # [id number]
[2022-01-12] MEDS ORDERED: MELO15TA39 PO (18:55)
--- NOTE | 2022-01-12 18:56 | ED Upper Extremity ---
General Chief Complaint: Upper Extremity Stated Complaint: R ARM PAIN Nursing Triage Note: Patient presents to the ED with c/o right shoulder pain. 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 Unable to lift shoulder. States she has had a rotator cuff injury on the shoulder in the past that did not require surgical repair. Source: patient Exam Limitations: no limitations History of Present Illness Date Seen by Provider: Jan 12, 2022 Time Seen by Provider: 18:23 Initial Comments 51-year-old female that is [id number] with past medical history of diabetes coming in due to right shoulder pain. She was doing some lifting at work, and felt some pain in her right shoulder acutely last night. Pain is sharp, worse with movement, better with rest, moderate. She took ibuprofen earlier today which did help. Feels similar to a rotator cuff injury in the past. She is otherwise denying any other acute complaints. Allergies and Home Medications Allergies Coded Allergies: prochlorperazine (Verified Allergy, Severe, Anaphylaxis, 01/19/19) Patient Home Medication List Home Medication List Reviewed: Yes Meloxicam (Meloxicam) 15 Mg Tablet, 15 MG PO DAILY Prescribed by: RUBIA RODRIGUEZ on 01/12/221854 Metoprolol Tartrate (Metoprolol Tartrate) 50 Mg Tablet, 50 MG PO BID, (Reported) Entered as Reported by: BORIS MONTELONGO on 01/19/192017 Omeprazole (Omeprazole) 40 Mg Capsule.dr, 40 MG PO DAILY, (Reported) Entered as Reported by: NATE KHAN on 01/20/19 132 Prednisone (Prednisone) 20 Mg Tab, 40 MG PO DAILY Prescribed by: SOLO CARLSON on 02/10/212055 Venlafaxine HCl (Venlafaxine HCl ER) 75 Mg Cap.er.24h, 75 MG PO DAILY, (Reported) Entered as Reported by: NATE KHAN on 01/20/19 1324 [Invokana] , (Reported) Entered as Reported by: BORIS MONTELONGO on 03/10/201419 [Trulicity] , (Reported) Entered as Reported by: BORIS MONTELONGO on 03/10/201419 Review of Systems Constitutional: No fever EENTM: no symptoms reported Respiratory: no symptoms reported Cardiovascular: no symptoms reported Gastrointestinal: no symptoms reported Genitourinary: no symptoms reported Musculoskeletal: see HPI Skin: no symptoms reported Psychiatric/Neurological: No Symptoms Reported All Other Systems Reviewed Negative Unless Noted: Yes Past Kmeighr-Imrgow-Zylqot Hx Patient Social History Tobacco Use?: No Use of E-Cig and/or Vaping dev: No Substance use?: No Alcohol Use?: No Pt feels they are or have been: No Immunizations Up To Date First/Initial COVID19 Vaccinat: Not currently vaccinated Seasonal Allergies Seasonal Allergies: No Past Medical History Surgery/Hospitalization HX: right rotator cuff injury; left knee arthoscopy; hysterectomy; DM; HTN; Depression; Cholecysectomy Surgeries: Yes (L lateral knee release, L breast cyst) Gallbladder, Hysterectomy, Orthopedic Respiratory: No Cardiac: Yes Hypertension 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 oz. kg; 47.00 BMI Method: General Appearance: WD/WN, no apparent distress HEENT: PERRL/EOMI, normal ENT inspection, pharynx normal Neck: non-tender, full range of motion, supple, normal inspection Cardiovascular: regular rate, rhythm, no edema, no murmur Respiratory: chest non-tender, lungs clear, normal breath sounds, no respiratory distress, no accessory muscle use Gastrointestinal: normal bowel sounds, non tender, soft; No distended, No guarding Back: normal inspection, no CVA tenderness, no vertebral tenderness Shoulder: normal inspection, no evidence of injury, normal ROM (Passively and actively with a lot of straining), soft tissue tenderness (Pain over the biceps tendon and over the acromion) Elbow/Forearm: normal inspection, non-tender, no evidence of injury, normal ROM Neurologic/Tendon: normal sensation, normal motor functions, normal tendon functions Neurologic/Psychiatric: no motor/sensory deficits, alert Skin: normal color, warm/dry Lymphatic: no adenopathy Progress/Results/Core Measures Results/Orders My Orders Orders - RUBIA RODRIGUEZ MD Shoulder 3 View Right (01/12/22 18:31) Acetaminophen Tablet (Tylenol Tablet) (01/12/22 18:45) Medications Given in ED Current Medications Medications Dose Ordered Sig/Makayla Route Start Time Stop Time Status Last Admin Dose Admin Acetaminophen 1,000 mg ONCE ONCE PO 01/12/22 18:45 01/12/22 18:46 DC 01/12/22 18:47 1,000 MG Vital Signs/I&O 01/12/22 18:26 Temp 36.7 Pulse 108 Resp 16 B/P (MAP) 197/71 (113) Pulse Ox 97 O2 Delivery Room Air Blood Pressure Mean: 113 Progress Progress Note : Progress Note 51-year-old female with above history coming in after shoulder pain after lifting something yesterday at work. ABCs were intact and vitals were stable on presentation. Physical exam with tenderness over her biceps tendon with a positive speeds test as well. Exam significant for biceps tendinitis. She also had some impingement signs including a positive Rajput test. Give Tylenol for pain. X-ray ordered and interpreted by me showing no fracture or dislocation. I will have her follow-up with orthopedics as an outpatient. Diagnostic Imaging Diagonstic Imaging: Xray (shoulder) Comments NAME: [facility] REC#: [id number] PT STATUS: REG ER : 1970 PHYSICIAN: RUBIA RODRIGUEZ MD ADMIT DATE: 01/12/22/ER FS Signed Date of Exam:01/12/22 SHOULDER 3 VIEW RIGHT EXAMINATION: Right shoulder radiographs, 3 views. COMPARISON: None. HISTORY: 51-year-old female, right shoulder pain. FINDINGS: The acromioclavicular joint is normally aligned. The humeral head is normally aligned relative to the glenoid. There are mild acromioclavicular degenerative changes without large undersurface osteophyte. There is osteophyte formation arising from the inferior aspect of the humeral head. There are subchondral cystic changes in the humeral head and glenoid. IMPRESSION: 1. Moderate glenohumeral osteoarthritis. 2. Mild acromioclavicular degenerative changes without undersurface osteophyte. 3. No identified acute bony abnormality. Dictated by: Dictated on workstation # [id number] Dict: 01/12/229 Trans: 01/12/221852 [id number] Interpreted by: ADOLFO LUNA MD Electronically signed by: ADOLFO LUNA MD 01/12/221852 Departure Impression Primary Impression: Biceps tendinitis of right shoulder Additional Impression: Shoulder impingement syndrome Qualified Codes: M75.41 - Impingement syndrome of right shoulder Disposition: HOME, SELF-CARE Condition: Stable Departure-Patient Inst. Decision time for Depature: 18:53 Referrals: MANAN RAYMUNDO (PCP) Primary Care Physician HOWARD PINK APRN (Family) Primary Care Physician Patient Instructions: Shoulder Impingement, Biceps Tendinopathy Add. Discharge Instructions: You do seem to have 2 different issues going on your shoulder, one of them being biceps tendinitis on the front part of your shoulder, and another part being impingement. Your rotator cuff felt strong and I did not detect a large tear on your exam. Take the meloxicam for the next couple weeks. Follow-up with [facility]. Scripts Meloxicam (Meloxicam) 15 Mg Tablet 15 MG PO DAILY for 14 Days, #14 TAB Prov: RUBIA RODRIGUEZ MD 01/12/22 Work/School Note: Work Release Form Date Seen in the Emergency Department: Jan 12, 2022 Return to Work: Jan 13, 2022 Restrictions: Need Release from Doctor Other Restrictions Listed Below: No lifting until cleared by orthopedist RUBIA RODRIGUEZ MD Jan 12, 2022 18:56
[2022-01-12 18:57] VITALS: BP 197/71
== END 2022-01-12 18:57 | disposition home or self-care (01) ==
LOC: EDUNIT# 18:23 → ER FS 18:24
DX: M75.21 Bicipital tendinitis, right shoulder (principal); M75.41 Impingement syndrome of right shoulder; Z28.310 Unvaccinated for COVID-19; X50.0XXA Overexertion from strenuous movement or load, initial encounter; Y92.59 Other trade areas as the place of occurrence of the external cause; Y99.0 Civilian activity done for income or pay
CPT/HCPCS: 73030